=== PATIENT | male | born 1985 | race Caucasian/White ===

== ENCOUNTER 2023-10-28 11:26 | Emergency (ER) | payer OTHER ==
[2023-10-28] MEDS ORDERED: MORPHINE 4 MG/ML SYR ONE (12:17)
--- NOTE | 2023-10-28 13:21 | RAD REPORT ---
EXAM DESCRIPTION: US - Scrotum Testicles - 10/28/2023 12:35 pm CLINICAL HISTORY: testicular pain COMPARISON: No comparisons TECHNIQUE: Sonographic grayscale and color flow images of the scrotum were obtained. FINDINGS: The right testicle measures 4.3 x 2.2 x 3.3 cm. Heterogeneous ill-defined central region o f hypoattenuation, measuring 1.6 x 1.1 x 1.1 cm, with surrounding hypervascularity. No discrete inter nal liquified components. The left testicle measures 4.4 x 2.9 x 2.2 cm. No intratesticular masses or evidence of testicular to rsion. Both epididymides are normal in size and appearance. Trace right hydrocele IMPRESSION: Central right testicular region of heterogeneous hypoattenuation up to 1.6 cm in size, w ith surrounding hypervascularity. This is concerning for a focal orchitis. Underlying mass would be c onsidered less likely.
[2023-10-28 14:09] LABS: Specific Gravity 1.011 (1.005-1.030); Sqamous Epithelial None Seen /HPF (None Seen); Urine Bacteria None Seen /HPF (<20); Urine Bilirubin NEGATIVE (Negative); Urine Blood Negative (Negative); Urine Clarity Clear (Clear); Urine Color Light-Yellow (Yellow); Urine Culture Reflex Order NOT NEEDED; Urine Glucose NEGATIVE (Negative); Urine Ketones NEGATIVE (Negative); Urine Micro Reflex YN NO BILL MICROSCOPIC; Urine Nitrite NEGATIVE (Negative); Urine Protein NEGATIVE (Negative); Urine RBC None Seen /HPF (None Seen); Urine Urobilinogen Normal (Normal); Urine WBC <5 /HPF (<5); Urine pH 5.5 (5.0-7.0)
--- NOTE | 2023-10-28 14:21 | ER ---
Nurse's Notes [facility] Name: Eugenio Lagos Age: 38 yrs Sex: Male : 1985 Arrival Date: 10/28/2023 Time: 11:26 Bed 8 Private MD: Diagnosis: Unilateral inguinal hernia, without obstruction or gangrene;Orchitis Presentation: 10/27 11:43 Chief complaint: Patient states: RIGHT HERNIA X 1 YEAR, PAIN TODAY STATES LIFTED db SOMETHING HEAVY YESTERDAY AND FELT SOMETHING AND TODAY SNEEZED AND FELT NOW HAS HERNIA IN TESTICLE WITH PAIN. Coronavirus screen: Client denies travel out of the [place] in the last 14 days. At this time, the client does not indicate any symptoms associated with coronavirus-19. Ebola Screen: Patient negative for fever greater than or equal to 101.5 degrees Fahrenheit, and additional compatible Ebola Virus Disease symptoms Patient denies exposure to infectious person. Patient denies travel to an Ebola-affected area in the 21 days before illness onset. No symptoms or risks identified at this time. Initial Sepsis Screen: Does the patient meet any 2 criteria? No. Patient's initial sepsis screen is negative. Does the patient have a suspected source of infection? No. Patient's initial sepsis screen is negative. Risk Assessment: Do you want to hurt yourself or someone else? Patient reports no desire to harm self or others. Onset of symptoms was October 28, 2023. 11:43 Method Of Arrival: Ambulatory db 11:43 Acuity: FLOYD 3 db Triage Assessment: 11:47 General: Appears in no apparent distress. uncomfortable, Behavior is calm, cooperative. db Pain: Complains of pain in pelvis. Neuro: Level of Consciousness is awake, alert, obeys commands, Oriented to person, place, time, situation. Historical: - Allergies: 11:47 No Known Allergies; db - PMHx: 11:47 Umbilical hernia; Inguinal hernia; db - Immunization history:: Adult Immunizations unknown. - Infectious Disease History:: Denies. - Social history:: Smoking status: Patient denies any tobacco usage or history of. - Family history:: not pertinent. Screenin:04 [facility] ED Fall Risk Assessment (Adult) History of falling in the last 3 months, al5 including since admission No falls in past 3 months (0 pts) Confusion or Disorientation No (0 pts) Intoxicated or Sedated No (0 pts) Impaired Gait No (0 pts) Mobility Assist Device Used No (0 pt) Altered Elimination No (0 pt) Score/Fall Risk Level 0 - 2 = Low Risk. [facility] ED Fall Risk Assessment (Adult) Score/Fall Risk Level 0 - 2 = Low Risk Oriented to surroundings, Maintained a safe environment, Hourly rounding (assess needs \T\ fall precautionary measures) done. Abuse screen: Denies threats or abuse. Denies injuries from another. Nutritional screening: No deficits noted. Tuberculosis screening: No symptoms or risk factors identified. Assessment: 12:05 General: Appears in no apparent distress. Behavior is calm, cooperative. Pain: al5 Complains of pain in inguinal Pain currently is 5 out of 10 on a pain scale. Neuro: Level of Consciousness is awake, alert, obeys commands, Oriented to person, place, time, situation, Speech is normal, Facial symmetry appears normal. Cardiovascular: Patient's skin is warm and dry. Cardiovascular: No deficits noted. Respiratory: No deficits noted. Airway is patent Trachea midline. GI: Reports lower abdominal pain. Derm: Skin is intact, Skin is pink, warm \T\ dry. normal. Vital Signs: 11:43 BP 132 / 85; Pulse 75; Resp 18; Temp 98.2(O); Pulse Ox 100% ; Weight 81.65 kg; Height 5 db ft. 10 in. ; 12:18 BP 134 / 95; Pulse 87; Resp 17; Pulse Ox 100% on R/A; Pain 5/10; al5 12:57 Pain 2/10; al5 12:57 BP 120 / 84; Pulse 68; Resp 16; Pulse Ox 99% on R/A; Pain 2/10; al5 14:21 BP 126 / 79; Pulse 68; Resp 16; Pulse Ox 100% on R/A; Pain 2/10; al5 11:43 Body Mass Index 25.83 (81.65 kg, 177.8 cm) db 12:18 Pain Scale: Adult al5 12:57 Pain Scale: Adult al5 12:57 Pain Scale: Adult al5 14:21 Pain Scale: Adult al5 ED Course: 11:28 Patient arrived in ED. im 11:47 Triage completed. db 11:47 Arm band placed on Patient placed in an exam room. db 11:51 Danny Hyman MD is Attending Physician. rt 12:03 Beatrice Arias, RN is Primary Nurse. al5 12:05 No provider procedures requiring assistance completed. al5 12:15 Patient has correct armband on for positive identification. Bed in low position. Call al5 light in reach. 12:26 ultrasound at bedside. al5 12:36 US Scrotum Testicles In Process Unspecified. EDMS 13:46 [facility] Sent. cm10 14:20 Hay Durán MD is Referral Physician. rt 14:39 Patient did not have IV access during this emergency room visit. al5 Administered Medications: 12:22 Drug: morphine IM 4 mg IM once Route: IM; Site: left deltoid; al5 12:57 Follow up: Pain 06/17 Adult; Response: No adverse reaction; Marked relief of symptoms al5 Medication: 14:40 VIS not applicable for this client. al5 Outcome: 14:21 Discharge ordered by MD. rt 14:38 Discharged to home ambulatory, al5 14:38 Condition: improved 14:38 Condition: stable 14:38 Discharge instructions given to patient, Instructed on discharge instructions, follow up and referral plans. medication usage, Demonstrated understanding of instructions, follow-up care, medications, 14:40 Patient left the ED. al5 Signatures: Dispatcher [employer] EDMS Lu Bradley RN SEMAJ db Danny Hyman MD MD rt Nadiya Walker im Cari Durán RN RN cm10 Beatrice Arias RN RN al5 Corrections: (The following items were deleted from the chart) 11:48 11:47 PMHx: None; db db
--- NOTE | 2023-10-28 14:21 | EDPHYS ---
Physician Documentation [facility] Name: Eugenio Lagos Age: 38 yrs Sex: Male : 1985 Arrival Date: 10/28/2023 Time: 11:26 Bed 8 Private MD: ED Physician Danny Hyman HPI: 10/27 14:47 This 38 yrs old Male presents to ER via Ambulatory with complaints of Hernia. rt 14:47 Patient with known right inguinal hernia presents to the ED with concerns for worsening rt hernia. Patient states that he sneezed, felt a swelling, pain to the right hemiscrotum, right testicle. States that the symptoms have somewhat improved but not resolved. Denies other acute complaints at this time, symptoms are moderate in severity, aching nature, nonradiating, no other aggravating or elevating factor.. Historical: - Allergies: 11:47 No Known Allergies; db - PMHx: 11:47 Umbilical hernia; Inguinal hernia; db - Immunization history:: Adult Immunizations unknown. - Infectious Disease History:: Denies. - Social history:: Smoking status: Patient denies any tobacco usage or history of. - Family history:: not pertinent. ROS: 14:47 Constitutional: Negative for fever, chills, and weight loss, Cardiovascular: Negative rt for chest pain, palpitations, and edema, Respiratory: Negative for shortness of breath, cough, wheezing, and pleuritic chest pain, Abdomen/GI: Negative for abdominal pain, nausea, vomiting, diarrhea, and constipation, Skin: Negative for injury, rash, and discoloration, Neuro: Negative for headache, weakness, numbness, tingling, and seizure, 14:47 : Positive for Scrotal, testicular pain, Exam: 14:47 Constitutional: This is a well developed, well nourished patient who is awake, alert, rt and in no acute distress. Head/Face: Normocephalic, atraumatic. Chest/axilla: Normal chest wall appearance and motion. Nontender with no deformity. No lesions are appreciated. Cardiovascular: Regular rate and rhythm with a normal S1 and S2. No gallops, murmurs, or rubs. Normal PMI, no JVD. No pulse deficits. Respiratory: Lungs have equal breath sounds bilaterally, clear to auscultation and percussion. No rales, rhonchi or wheezes noted. No increased work of breathing, no retractions or nasal flaring. Abdomen/GI: Soft, non-tender, with normal bowel sounds. No distension or tympany. No guarding or rebound. No evidence of tenderness throughout. 14:47 : Right testicle is high riding, somewhat horizontally lied. There is no palpable hernia, mild tenderness at the inguinal canal but no swelling noted. Skin is normal., Vital Signs: 11:43 BP 132 / 85; Pulse 75; Resp 18; Temp 98.2(O); Pulse Ox 100% ; Weight 81.65 kg; Height 5 db ft. 10 in. ; 12:18 BP 134 / 95; Pulse 87; Resp 17; Pulse Ox 100% on R/A; Pain 5/10; al5 12:57 Pain 2/10; al5 12:57 BP 120 / 84; Pulse 68; Resp 16; Pulse Ox 99% on R/A; Pain 2/10; al5 14:21 BP 126 / 79; Pulse 68; Resp 16; Pulse Ox 100% on R/A; Pain 2/10; al5 11:43 Body Mass Index 25.83 (81.65 kg, 177.8 cm) db 12:18 Pain Scale: Adult al5 12:57 Pain Scale: Adult al5 12:57 Pain Scale: Adult al5 14:21 Pain Scale: Adult al5 MDM: 11:52 Patient medically screened. rt 14:47 Differential Diagnosis Testicular torsion, mass, orchitis, hernia. Data reviewed: vital rt signs, nurses notes, lab test result(s), radiologic studies. I considered the following discharge prescriptions or medication management in the emergency department Medications were administered in the Emergency Department. See MAR. Test considered but Not performed: CT: No palpable hernia, no hernia on ultrasound, no signs of bowel obstruction, CT scan is not indicated. Counseling: I had a detailed discussion with the patient and/or guardian regarding the historical points, exam findings, and any diagnostic results supporting the discharge/admit diagnosis, lab results, radiology results, the need for outpatient follow up, to return to the emergency department if symptoms worsen or persist or if there are any questions or concerns that arise at home. 14:49 ED course: Patient was given copy of ultrasound report, urinalysis report. The patient rt was informed that the mass is not likely, has not been ruled out and was instructed to follow-up for repeat ultrasound after this acute event to ensure that radiographic abnormalities to improve.. 10/27 13:37 Order name: [place]; Complete Time: 14:10 rt 10/27 11:58 Order name: Scrotum Testicles; Complete Time: 13:37 rt Administered Medications: 12:22 Drug: morphine IM 4 mg IM once Route: IM; Site: left deltoid; al5 12:57 Follow up: Pain 06/17 Adult; Response: No adverse reaction; Marked relief of symptoms al5 Disposition Summary: 10/28/23 14:21 Discharge Ordered Notes: Location: Home rt Problem: new rt Symptoms: have improved rt Condition: Stable rt Diagnosis - Unilateral inguinal hernia, without obstruction or gangrene rt - Orchitis rt Followup: rt - With: Hay Durán MD - When: 2 - 3 days - Reason: Discharge Instructions: - Discharge Summary Sheet rt - Hernia, Adult rt - Orchitis rt Forms: - Medication Reconciliation Form rt - Antibiotic Education rt - Prescription Opioid Use rt - Patient Portal Instructions rt - Leadership Thank You Letter rt Prescriptions: - levofloxacin 750 mg Oral tablet - take 1 tablet ORAL route once daily; 7 tablet; Refills: 0, Product Selection rt Permitted Signatures: Dispatcher [employer] Lu Barnes RN RN db Danny Hyman MD MD rt Beatrice Arias RN RN al5 Corrections: (The following items were deleted from the chart) 11:48 11:47 PMHx: None; sarah smith
[2023-10-28 14:48] VITALS: TEMP 98.2
[2023-10-28 15:06] VITALS: BP 126/79; O2SAT 100
== END 2023-10-28 14:40 | disposition home or self-care (01) ==
LOC: ER 11:26
DX: K40.90 Unilateral inguinal hernia, without obstruction or gangrene, not specified as recurrent (principal); N45.2 Orchitis
CPT/HCPCS: 76870; 81001; 96372; 99284

== ENCOUNTER 2023-10-31 01:08 | Emergency (ER) | payer OTHER ==
[2023-10-31] MEDS ORDERED: KETOROLAC 30 MG/ML INJ ONE (02:00)
[2023-10-31] MEDS ORDERED: ONDANSETRON 4 MG/2 ML VIAL ONE (02:00)
[2023-10-31] MEDS ORDERED: MORPHINE 4 MG/ML SYR ONE (02:00)
[2023-10-31] MEDS ORDERED: NA CHLORIDE 0.9% 1,000 ML ONE (02:01)
[2023-10-31 02:40] LABS: Absolute Eosinophils 0.4 K/uL (0-0.5); Absolute Lymphocytes (CBC) 1.9 K/uL (0.7-4.9); Absolute Monocytes 0.7 K/uL (0.1-1.3); Absolute Neutrophil 4.7 K/uL (1.8-8.0); Basophils % 0.3 % (0-1.3); Eosinophils % 5.1 % (0-4.4); Hematocrit 43.1 % (39.6-49.0); Hemoglobin 14.6 g/dL (13.6-17.9); Lymphocytes % 24.7 % (15.3-44.8); MCH 32.3 pg (27.0-35.0); MCHC 33.9 g/dL (32.0-36.0); MCV 95.6 fL (80-100); MPV 9.1 fL (7.6-11.3); Monocytes % 8.7 % (3.3-12.3); Neutrophils % 61.2 % (41.7-73.7); Platelets 261 thou/uL (152-406); RBC Red Blood Cell Count 4.51 M/uL (4.33-5.43); Red Cell Distribution Width 13.3 % (12.1-15.2)
[2023-10-31 02:49] LABS: Albumin 3.5 g/dL (3.4-5.0); Albumin/Globulin Ratio 0.9 (1.1-1.8); Anion Gap 5.9 mEq/L (5.0-15.0); Bilirubin Total 0.2 mg/dL (0.2-1.0); Potassium 3.9 mEq/L (3.5-5.1); Protein, Total 7.5 g/dL (6.4-8.2)
[2023-10-31 03:16] LABS: Specific Gravity 1.008 (1.005-1.030); Urine Bilirubin NEGATIVE (Negative); Urine Blood Negative (Negative); Urine Clarity Clear (Clear); Urine Color Colorless (Yellow); Urine Glucose NEGATIVE (Negative); Urine Ketones NEGATIVE (Negative); Urine Microscopic Reflex YN NO UMIC; Urine Nitrite NEGATIVE (Negative); Urine Protein NEGATIVE (Negative); Urine Urobilinogen Normal (Normal); Urine pH 5.5 (5.0-7.0)
--- NOTE | 2023-10-31 03:58 | ER ---
Nurse's Notes [facility] Name: Eugenio Lagos Age: 38 yrs Sex: Male : 1985 Arrival Date: 10/31/2023 Time: 01:08 Bed 17 Private MD: Diagnosis: Upper abdominal pain, unspecified Presentation: 10/30 01:35 Chief complaint: Patient states: right sided flank pain beginning 2230. Coronavirus lg3 screen: Client denies travel out of the [place] in the last 14 days. At this time, the client does not indicate any symptoms associated with coronavirus-19. Ebola Screen: No symptoms or risks identified at this time. Initial Sepsis Screen: Does the patient meet any 2 criteria? No. Patient's initial sepsis screen is negative. Does the patient have a suspected source of infection? No. Patient's initial sepsis screen is negative. Risk Assessment: Do you want to hurt yourself or someone else? Patient reports no desire to harm self or others. Onset of symptoms was October 30, 2023. 01:35 Method Of Arrival: Ambulatory lg3 01:35 Acuity: FLOYD 3 lg3 Triage Assessment: 01:37 General: Appears in no apparent distress. uncomfortable, Behavior is calm, cooperative. lg3 Pain: Complains of pain in right flank. EENT: No deficits noted. No signs and/or symptoms were reported regarding the EENT system. Neuro: No deficits noted. Mejia Agitation-Sedation Scale (RASS): 0 - Alert and Calm Level of Consciousness is awake, alert, obeys commands, Oriented to person, place, time, situation. Cardiovascular: No deficits noted. Denies chest pain, shortness of breath, Capillary refill < 3 seconds Clubbing of nail beds is absent JVD is absent Patient's skin is warm and dry. Respiratory: No deficits noted. Airway is patent Respiratory effort is even, unlabored, Respiratory pattern is regular, symmetrical. GI: Abdomen is flat, non-distended, Reports cramping, nausea. : No deficits noted. No signs and/or symptoms were reported regarding the genitourinary system. Derm: No deficits noted. No signs and/or symptoms reported regarding the dermatologic system. Skin is intact, is healthy with good turgor, Skin is dry, Skin is normal, Skin temperature is warm. Musculoskeletal: No deficits noted. No signs and/or symptoms reported regarding the musculoskeletal system. Circulation, motion, and sensation intact. Range of motion: intact in all extremities. Historical: - Allergies: 01:37 No Known Allergies; lg3 - Home Meds: 01:37 None [Active]; lg3 - PMHx: 01:37 inguinal hernia; Umbilical hernia; lg3 - PSHx: 01:37 None; lg3 - Immunization history:: Adult Immunizations up to date. - Infectious Disease History:: Denies. - Social history:: Smoking status: Patient denies any tobacco usage or history of. Patient uses alcohol, only on a social basis. Screenin:30 [facility] ED Fall Risk Assessment (Adult) History of falling in the last 3 months, vc1 including since admission No falls in past 3 months (0 pts) Confusion or Disorientation No (0 pts) Intoxicated or Sedated No (0 pts) Impaired Gait No (0 pts) Mobility Assist Device Used No (0 pt) Altered Elimination No (0 pt) Score/Fall Risk Level 0 - 2 = Low Risk Oriented to surroundings, Maintained a safe environment, Educated pt \T\ family on fall prevention, incl call for assistance when getting out of bed. Abuse screen: Denies threats or abuse. Nutritional screening: No deficits noted. Tuberculosis screening: No symptoms or risk factors identified. Assessment: 01:40 General: Appears in no apparent distress. uncomfortable, slender, well groomed, well vc1 developed, well nourished, Behavior is calm, cooperative, appropriate for age. Pain: Complains of pain in right lower quadrant Pain radiates to right mid back Pain currently is 7 out of 10 on a pain scale. Quality of pain is described as radiating, sharp, Also complains of nausea. Neuro: Level of Consciousness is awake, alert, obeys commands, Oriented to person, place, time, situation, Appropriate for age. Cardiovascular: Heart tones S1 S2 present Capillary refill < 3 seconds Patient's skin is warm and dry. Rhythm is sinus rhythm. Respiratory: Airway is patent Respiratory effort is even, unlabored, Respiratory pattern is regular, symmetrical, Breath sounds are clear. GI: Abdomen is flat, non-distended, Bowel sounds present X 4 quads. Abd is soft Abdomen is tender to palpation in right lower quadrant Reports lower abdominal pain, nausea. : No deficits noted. No signs and/or symptoms were reported regarding the genitourinary system. EENT: No deficits noted. No signs and/or symptoms were reported regarding the EENT system. Derm: Skin is intact, is healthy with good turgor, Skin is dry, Skin is pink, warm \T\ dry. Skin temperature is warm. Musculoskeletal: No deficits noted. No signs and/or symptoms reported regarding the musculoskeletal system. 04:00 Reassessment: Patient appears in no apparent distress at this time. Patient and/or vc1 family updated on plan of care and expected duration. Pain level reassessed. Patient is alert, oriented x 3, equal unlabored respirations, skin warm/dry/pink. Patient states feeling better. Patient states symptoms have improved. Vital Signs: 01:35 BP 144 / 101; Pulse 67; Resp 17 S; Temp 98(O); Pulse Ox 98% on R/A; Weight 81.65 kg lg3 (R); Height 5 ft. 10 in. (R); 02:00 BP 133 / 90; Pulse 64; Resp 17; Pulse Ox 97% ; vc1 03:00 BP 127 / 85; Pulse 62; Resp 17; Pulse Ox 99% ; vc1 04:00 BP 129 / 84; Pulse 58; Resp 16; Pulse Ox 97% ; vc1 01:35 Body Mass Index 25.83 (81.65 kg, 177.8 cm) lg3 ED Course: 01:10 Patient arrived in ED. jj6 01:10 Endy Marino MD is Attending Physician. ec2 01:37 Triage completed. lg3 01:37 Arm band placed on right wrist. lg3 01:40 Patient has correct armband on for positive identification. Bed in low position. Call vc1 light in reach. Pulse ox on. NIBP on. 01:53 Inserted saline lock: 18 gauge in right antecubital area, using aseptic technique. lg3 Blood collected. 02:16 CT Abd/Pelvis - Without Contrast In Process Unspecified. EDMS 04:15 No provider procedures requiring assistance completed. vc1 04:15 IV discontinued, intact, bleeding controlled, No redness/swelling at site. Pressure vc1 dressing applied. Administered Medications: 02:09 Drug: NS 0.9% IV 1000 ml IV at 1 bolus Per protocol; 1000 mL bolus Route: IV; Rate: 1 vc1 bolus; Site: right antecubital; 02:10 Drug: TORadol - Ketorolac IVP 15 mg IVP once Route: IVP; Site: right antecubital; vc1 02:10 Drug: Ondansetron IVP 4 mg IVP once; over 2 minutes Route: IVP; Site: right antecubital;vc1 02:10 Drug: morphine IVP or IV 4 mg IVP once over 4 mins Route: IVP; Infused Over: 4 mins; vc1 Site: right antecubital; Medication: 04:40 VIS not applicable for this client. vc1 Outcome: 03:57 Discharge ordered by . ec2 04:40 Discharged to home ambulatory, vc1 04:40 Condition: good 04:40 Discharge instructions given to patient, Instructed on discharge instructions, follow up and referral plans. medication usage, Demonstrated understanding of instructions, follow-up care, medications, Prescriptions given X 1, 04:43 Patient left the ED. vc1 Signatures: Dispatcher [employer] Jeanine Ledesma RN RN lg3 Roxana Brown6 Shari Walls RN RN vc1 Endy Marino MD MD ec2
--- NOTE | 2023-10-31 03:58 | EDPHYS ---
Physician Documentation [facility] Name: Eugenio Lagos Age: 38 yrs Sex: Male : 1985 Arrival Date: 10/31/2023 Time: 01:08 Bed 17 Private MD: ED Physician Endy Marino HPI: 10/30 01:32 This 38 yrs old Male presents to ER via Unassigned with complaints of ec2 Abdominal Pain. 01:32 Patient arrives today for evaluation of right flank pain. Patient reports that he has ec2 been having worsening flank pain for the past several days. Has previously been diagnosed with a scrotal hernia. Patient reports some bouts of nausea, no vomiting. Denies issues with his bowels, last bowel movement was yesterday morning. Patient reports that he was prescribed Levaquin several days ago for UTI.. Historical: - Allergies: 01:37 No Known Allergies; lg3 - Home Meds: 01:37 None [Active]; lg3 - PMHx: 01:37 inguinal hernia; Umbilical hernia; lg3 - PSHx: 01:37 None; lg3 - Immunization history:: Adult Immunizations up to date. - Infectious Disease History:: Denies. - Social history:: Smoking status: Patient denies any tobacco usage or history of. Patient uses alcohol, only on a social basis. ROS: 01:32 Constitutional: as per hpi ec2 Exam: 01:32 Constitutional: GEN: NAD Head: atraumatic Eyes: EOMI Ears: External ears are ec2 normal. CV: regular rate LUNGS: no respiratory distress ABD: non-distended, soft, not guarding, not rigid, tender in the right upper quadrant SKIN: no evidence of rashes MSK: no evidence of trauma NEURO: moves all extremities equally Vital Signs: 01:35 BP 144 / 101; Pulse 67; Resp 17 S; Temp 98(O); Pulse Ox 98% on R/A; Weight 81.65 kg lg3 (R); Height 5 ft. 10 in. (R); 02:00 BP 133 / 90; Pulse 64; Resp 17; Pulse Ox 97% ; vc1 03:00 BP 127 / 85; Pulse 62; Resp 17; Pulse Ox 99% ; vc1 04:00 BP 129 / 84; Pulse 58; Resp 16; Pulse Ox 97% ; vc1 01:35 Body Mass Index 25.83 (81.65 kg, 177.8 cm) lg3 MDM: 01:18 Patient medically screened. ec2 01:32 Data reviewed: vital signs. ED course: Patient arrives today for evaluation of right ec2 flank pain. Examination remarkable for well-appearing nontoxic dividual is otherwise in no acute distress with a reassuring examination. Will obtain lab work, treat the patient symptoms and obtain a CT scan. Differential diagnosis include ureteral stone, urinary tract infection, small bowel obstruction.. 03:11 ED course: CBC is reassuring. Metabolic profile shows appropriate electrolytes and ec2 renal function. Lipase within normal ranges. . 03:18 ED course: Urine noninfectious appearing.. ec2 03:57 ED course: CT imaging with no acute findings. Will discharge home and have the patient ec2 follow-up with a primary care doctor as well as Dr. Durán, general surgery for his reported hernia. 10/30 01:30 Order name: CBC with Diff; Complete Time: 03:11 ec2 10/30 01:30 Order name: CMP; Complete Time: 03:11 ec2 10/30 01:30 Order name: Lipase; Complete Time: 03:11 ec2 10/30 01:30 Order name: Urinalysis w/ reflexes; Complete Time: 03:18 ec2 10/30 01:30 Order name: CT Abd/Pelvis - Without Contrast ec2 10/30 01:30 Order name: IV Saline Lock; Complete Time: 01:58 ec2 10/30 01:30 Order name: Labs collected and sent; Complete Time: 01:58 ec2 Administered Medications: 02:09 Drug: NS 0.9% IV 1000 ml IV at 1 bolus Per protocol; 1000 mL bolus Route: IV; Rate: 1 vc1 bolus; Site: right antecubital; 02:10 Drug: TORadol - Ketorolac IVP 15 mg IVP once Route: IVP; Site: right antecubital; vc1 02:10 Drug: Ondansetron IVP 4 mg IVP once; over 2 minutes Route: IVP; Site: right antecubital;vc1 02:10 Drug: morphine IVP or IV 4 mg IVP once over 4 mins Route: IVP; Infused Over: 4 mins; vc1 Site: right antecubital; Disposition Summary: 10/31/23 03:57 Discharge Ordered Notes: Location: Home ec2 Condition: Stable ec2 Diagnosis - Upper abdominal pain, unspecified ec2 Followup: ec2 - With: Private Physician - When: - Reason: Re-evaluation by your physician Discharge Instructions: - Discharge Summary Sheet ec2 - Abdominal Pain, Adult ec2 Forms: - Medication Reconciliation Form ec2 - Antibiotic Education ec2 - Prescription Opioid Use ec2 - Patient Portal Instructions ec2 - Leadership Thank You Letter ec2 Prescriptions: - acetaminophen-codeine 300-15 mg Oral tablet - take 1 tablet ORAL route every 8 hours; 10 tablet; Refills: 0, Product ec2 Selection Permitted Signatures: Dispatcher [employer] Jeanine Ledesma RN RN lg3 Shari Walls RN RN vc1 Endy Marino MD MD ec2
[2023-10-31 10:03] VITALS: BP 144/101; TEMP 98; O2SAT 98
--- NOTE | 2023-10-31 17:08 | RAD REPORT ---
EXAM DESCRIPTION: CT - Abdomen Pelvis Wo Contrast - 10/31/2023 6:41 am CLINICAL HISTORY: R flank pain TECHNIQUE: Axial computed tomography images of the abdomen and pelvis without intravenous contrast. Sagittal and coronal reformatted images were created and reviewed. This CT exam was performed usi ng one or more of the following dose reduction techniques: automated exposure control, adjustment o f the mA and/or kV according to patient size, and/or use of iterative reconstruction technique. COMPARISON: No relevant prior studies available. FINDINGS: Lung bases: Bibasilar subsegmental atelectasis/pleural parenchymal scar. ABDOMEN: Liver: Unremarkable. Gallbladder and bile ducts: Unremarkable. No calcified stones. No ductal dilation. Pancreas: Unremarkable. No ductal dilation. Spleen: Unremarkable. No splenomegaly. Adrenals: Unremarkable. No mass. Kidneys and ureters: Unremarkable. No obstructing stones. No hydronephrosis. Stomach and bowel: Moderate stool in the proximal to mid large bowel. No bowel obstruction. No appr eciable mucosal thickening. PELVIS: Appendix: Normal caliber appendix. No findings to suggest acute appendicitis. Bladder: Unremarkable. No stones. Reproductive: Unremarkable as visualized. ABDOMEN and PELVIS: Intraperitoneal space: Unremarkable. No free air. No significant fluid collection. Bones/joints: No acute fracture. No dislocation. Soft tissues: Small fat-containing umbilical and left inguinal hernias. Vasculature: Unremarkable. No abdominal aortic aneurysm. Lymph nodes: Unremarkable. No enlarged lymph nodes. IMPRESSION: 1. No renal, ureteral or bladder calculi. No evidence for renal obstruction. 2. Other findings as above. Electronically signed by: Raquel Guzman MD 10/31/2023 03:34 AM [facility] Due to temporary technical issues with the PACS/Fluency reporting system, reports are being signed by the in house radiologists without review as a courtesy to insure prompt reporting. The interpreting radiologist is fully responsible for the content of the report.
== END 2023-10-31 04:43 | disposition home or self-care (01) ==
LOC: ER 01:08
DX: R10.11 Right upper quadrant pain (principal)
CPT/HCPCS: 85025; 36415; 81003; 83690; 80053; 74176; J2405; J7030

== ENCOUNTER 2023-12-25 09:59 | Day surgery (SDC) | payer OTHER ==
[2023-12-22 09:51] LABS: Anion Gap 7.1 mEq/L (5.0-15.0); Potassium 4.1 mEq/L (3.5-5.1)
[2023-12-22 09:52] LABS: Absolute Eosinophils 0.2 K/uL (0-0.5); Absolute Lymphocytes (CBC) 1.7 K/uL (0.7-4.9); Absolute Monocytes 0.5 K/uL (0.1-1.3); Absolute Neutrophil 3.5 K/uL (1.8-8.0); Basophils % 0.4 % (0-1.3); Eosinophils % 3.9 % (0-4.4); Hematocrit 41.7 % (39.6-49.0); Hemoglobin 14.2 g/dL (13.6-17.9); Lymphocytes % 28.2 % (15.3-44.8); MCHC 34.2 g/dL (32.0-36.0); MCV 96.5 fL (80-100); Monocytes % 8.4 % (3.3-12.3); Neutrophils % 59.1 % (41.7-73.7); Platelets 215 thou/uL (152-406); RBC Red Blood Cell Count 4.32 M/uL (4.33-5.43); Red Cell Distribution Width 13.7 % (12.1-15.2)
[2023-12-25] MEDS: Ringers Lactate 1,000 ML IV ONE (10:20)
[2023-12-25] MEDS ORDERED: MIDAZOLAM HCL 2 MG/2 ML INJ ONE (10:58)
[2023-12-25] MEDS ORDERED: FENTANYL CITR 100 MCG/2 ML ONE ×2 (11:02→11:50)
[2023-12-25] MEDS ORDERED: LIDOCAINE 2% MPF 5 ML VIAL ONE (11:02)
[2023-12-25] MEDS ORDERED: propofoL 200 MG/20 ML VIAL IV ONE (11:02)
[2023-12-25] MEDS ORDERED: ROCURONIUM 50 MG/5 ML VIAL IV ONE (11:02)
[2023-12-25] MEDS ORDERED: ONDANSETRON 4 MG/2 ML VIAL ONE (11:02)
[2023-12-25] MEDS ORDERED: dexAMETHasone 10 MG/ML VIAL ONE (11:17)
[2023-12-25] MEDS: CEFAZOLIN SODIUM 1 GM/VIAL ONE (11:22)
[2023-12-25] MEDS ORDERED: EPHEDRINE SULF 50 MG/ML VIAL ONE (11:40)
[2023-12-25] MEDS ORDERED: GLYCOPYRROLATE 0.2 MG/ML SYR ONE (12:12)
[2023-12-25] MEDS ORDERED: NEOSTIGMINE 1 MG/ML -10 ML VIAL ONE (12:12)
[2023-12-25] MEDS ORDERED: KETOROLAC 30 MG/ML INJ ONE (12:13)
[2023-12-25 13:00] VITALS: O2SAT 100
--- NOTE | 2023-12-25 13:17 | P.BOP ---
Preoperative diagnosis: tender bilateral inguinal and umbilical hernias Postoperative diagnosis: same Primary procedure: 1. Laparoscopic repair of tender Left inguinal hernia with mesh Secondary procedure: 2. Laparoscopic repair of tender right inguinal hernia with mesh Other procedure(s): 3. Oepn repair of umbilical hernia 2cm Estimated blood loss: <10cc Specimen: umbilical Findings: bilateral inguinal hernia. L > R, as above Anesthesia: General Complications: None Implants: inguinal 3d equivalent Transferred to: Recovery Room Condition: Good
[2023-12-25] MEDS: CODEINE 30MG/APAP 300MG TAB ONE (14:09)
[2023-12-25 14:46] VITALS: BP 124/69; TEMP 96.6
== END 2023-12-25 14:30 | disposition home or self-care (01) ==
LOC: OR 09:59
PROVIDERS: ATTEND Surgery
PROC: 0YUA4JZ Supplement Bilateral Inguinal Region with Synthetic Substitute, Percutaneous Endoscopic Approach (ICD-10-PCS; principal; 2023-12-25 11:45)
PROC: 0WQF0ZZ Repair Abdominal Wall, Open Approach (ICD-10-PCS; 2023-12-25 11:45)
DX: K40.20 Bilateral inguinal hernia, without obstruction or gangrene, not specified as recurrent (principal); K42.9 Umbilical hernia without obstruction or gangrene
CPT/HCPCS: 85025; 80048; 36415; 88302; 49650; 49591; J2704; J2710; J2001; J2250; J3010 ×2; J1100; J2405; J7120; J0690